=== PATIENT | female | born 1955 | race Caucasian/White ===

== ENCOUNTER 2019-02-04 06:45 | Day surgery (SDC) | payer BC ==
[2019-02-01 12:35] LABS: Hematocrit 39.2 % (36.0-45.0); MPV 8.9 fL (7.6-11.3); RBC Red Blood Cell Count 4.48 M/uL (3.86-4.86)
--- NOTE | 2019-02-01 12:37 | EKG ---
Test Date: 2019-02-01 Test Time: 12:00:21 Personal Fitness Trainer: SILVANA MEASUREMENT RESULTS: Intervals: Rate: 49 IL: 140 QRSD: 78 QT: 410 QTc: 370 [place]: P: 20 [place]: 140 QRS: 44 T: 56 INTERPRETIVE STATEMENTS: Marked sinus bradycardia Abnormal ECG Compared to ECG 10/15/1999 09:23:00 Sinus rhythm no longer present Ventricular premature complex(es) no longer present Electronically Signed On 02-01-19 12:36:18 CDT by Naeem Thomas
[2019-02-01 13:18] LABS: Protein, Total 6.8 g/dL (6.4-8.2)
[2019-02-04] MEDS ORDERED: WATER IV ONE ×2 (07:00→07:15)
[2019-02-04] MEDS ORDERED: DEXTROSE 5% IV ONE ×2 (07:00→07:15)
[2019-02-04] MEDS ORDERED: METHYLENE BLUE 0.5% IV ONE ×2 (07:00→07:15)
[2019-02-04] MEDS ORDERED: Ringers Lactate 1,000 ML IV ONE (07:09)
[2019-02-04] MEDS ORDERED: LIDOCAINE 1% W/EPI 1:100,000 MDV 20 ML VIAL ONE (08:08)
[2019-02-04] MEDS ORDERED: FENTANYL CITR 250 MCG/5 ML ONE (08:10)
[2019-02-04] MEDS ORDERED: PROPOFOL 200 MG/20 ML VIAL IV ONE (08:10)
[2019-02-04] MEDS ORDERED: LIDOCAINE 2% MPF 5 ML VIAL ONE (08:10)
[2019-02-04] MEDS ORDERED: ROCURONIUM 50 MG/5 ML VIAL IV ONE (08:10)
[2019-02-04] MEDS ORDERED: dexAMETHasone 10 MG/ML VIAL ONE (08:10)
[2019-02-04] MEDS ORDERED: MIDAZOLAM HCL 2 MG/2 ML INJ ONE (08:10)
[2019-02-04] MEDS ORDERED: EPHEDRINE SULF 50 MG/ML VIAL ONE (08:45)
--- NOTE | 2019-02-04 10:36 | P.BOP ---
Preoperative diagnosis: hyperparathyroidism, parathyroid adenoma Postoperative diagnosis: same Primary procedure: parathyroidectomy [employer]: GINNY MILLER Estimated blood loss: 10 ml Specimen: right inferior and superior Findings: small inf parathyroid, large sup parathyroid located in TE groove Anesthesia: General Complications: None Fluids & blood products: 850ml crystalloid, 400 methylene blue solution Transferred to: Recovery Room Condition: Good
[2019-02-04] MEDS ORDERED: ONDANSETRON 4 MG/2 ML VIAL ONE (11:29)
[2019-02-04 14:53] VITALS: BP 136/75; TEMP 96.9; O2SAT 92
--- NOTE | 2019-02-04 22:25 | OP ---
Date of Procedure: 02/04/2019 Surgeon: Jessica Elam MD Preoperative Diagnoses: Right parathyroid adenoma, hypercalcemia, hyperparathyroidism, osteoporosis. Postoperative Diagnoses: Right parathyroid adenoma, hypercalcemia, hyperparathyroidism, osteoporosis. Procedure: 1. Exploration and excision of right parathyroid adenoma and right parathyroids. Specimens: 1. Right inferior parathyroid. 2. Right superior parathyroid. Indication For Procedure: Ms. Carvalho presented with the above noted diagnoses. Based on accepted surgical criteria, a parathyroidectomy was recommended. The risks, benefits, and alternatives were discussed with the patient who agreed to proceed. Description Of Procedure: The patient was brought to the operating room. She was placed under general anesthesia via oral endotracheal tube. A shoulder roll was placed. The head was extended. A surgeon performed ultrasound, was done with attempt to locate the parathyroid adenoma. There was a hypodense lesion adjacent to the carotid in the inferior aspect which was suspicious for parathyroid adenoma and the ultrasound was concluded. The patient's neck was then prepped and draped in standard sterile fashion. A marking pen was used to sal[place] the patient's sternal notch and thyroid cartilage notch. A 2 cm incision was made in an existing skin crease. The skin and subcutaneous tissues were divided. The platysma was retracted. The anterior border of the sternocleidomastoid muscle was identified. The strap muscles were identified. The strap muscles were retracted medially and the inferior pole of the thyroid was noted. Dissection around the inferior aspect of the thyroid revealed approximately 1 cm parathyroid gland which was appropriately discolored due to administration of dilute intravenous methylene blue perioperatively. The specimen was carefully dissected and removed. However, on further inspection, it appeared to be slightly larger than normal parathyroid gland but smaller than typical for an adenoma. While awaiting time for interval for parathyroid hormone washout, the dissection and investigation was continued. There were no additional parathyroid glands noted within the immediate area and decision was made to look for the superior parathyroid. The skin incision was extended approximately 1 cm in order to provide better retraction in view of the right thyroid gland. After extension of the incision, the soft tissues were retracted and the thyroid gland superior pole was dissected and mobilized by division of soft tissue attachments and vasculature attachments. The right thyroid lobe was then retracted medially and careful inspection and dissection was made. No parathyroid gland was noted within the fatty tissue surrounding the superior pole of the thyroid. The recurrent laryngeal nerve was identified and carefully protected. Palpation within the tracheoesophageal groove revealed some concern for nodularity. The carotid artery was then carefully retracted laterally and Lopez dissector was used to dissect within the paratracheal region and tracheoesophageal groove. After careful dissection of the fat, there was some notable tissue suspicious for a methylene blue-stained parathyroid. The vascular and soft tissue attachments that were overlying the recurrent laryngeal nerves were then divided in order to allow better dissection in this area. The parathyroid adenoma was then bluntly dissected and small vascular attachments were divided using the ligature. After removal, the surgical bed was carefully inspected. The recurrent laryngeal nerve appeared to be physically intact. There was no significant bleeding or oozing. The right thyroid was replaced into its anatomic position. No drain was felt to be necessary. The wound was closed in a layered fashion using 4-0 Vicryl sutures and 5-0 Monocryl subcuticular suture. Due to patient's adhesive allergy , no Mastisol or Steri-Strips were applied and the incision was left uncovered. The patient was then returned to care of Anesthesia for awakening and extubation in the operating room, which proceeded without difficulty. Complications: None. Labs: Pre-opeartive PTH 156 Intra-operative PTH (after removal of inferior parathyroid): 140 Post-operative PTH (after removal of superior parathyroid): 14 Disposition: The patient will be discharged home later today and follow up with Dr. Elam in about 10 days for evaluation of wound healing. JARAD/CHRISTIANE Voice ID: [id number] Report ID: [id number] ALEXEI
--- OUTSIDE RECORDS SUMMARY | 2019-02-13 19:08 | XMS REPORT ---
:1955 [facility] Address [address] [place] [address] Dr. Cortez [address] [place] [id number] Care Team Providers Name Role Phone Unavailable Unavailable Unavailable Problems This patient has no known problems. Allergies, Adverse Reactions, Alerts This patient has no known allergies or adverse reactions. Medications This patient has no known medications.
== END 2019-02-04 13:20 | disposition home or self-care (01) ==
LOC: OR 06:45
PROVIDERS: ATTEND Otolaryngology
PROC: 0GBL0ZZ Excision of Right Superior Parathyroid Gland, Open Approach (ICD-10-PCS; 2019-02-04)
PROC: 0GBN0ZZ Excision of Right Inferior Parathyroid Gland, Open Approach (ICD-10-PCS; principal; 2019-02-04 08:15)
DX: D35.1 Benign neoplasm of parathyroid gland (principal); E21.0 Primary hyperparathyroidism; E83.52 Hypercalcemia; M81.8 Other osteoporosis without current pathological fracture; Z88.0 Allergy status to penicillin; Z88.2 Allergy status to sulfonamides; Z88.6 Allergy status to analgesic agent; Z91.040 Latex allergy status; Z80.9 Family history of malignant neoplasm, unspecified; Z83.3 Family history of diabetes mellitus; Z82.49 Family history of ischemic heart disease and other diseases of the circulatory system
CPT/HCPCS: 93005; 85025; 36415 ×2; 82310; 84155; 88305; 83970 ×3; 60500; J2704; J2250; J3010; J1100; J7060; J7120; J2405

== ENCOUNTER 2022-08-17 19:49 | Emergency (ER) | payer BC ==
--- OUTSIDE RECORDS SUMMARY | 2022-08-17 19:53 | XMS REPORT | Continuity of Care Document ---
:1955 Author Organization [facility] t Address [address] [facility] [address] [place] [address] Care Team Providers Name Role Phone Pcp, Patient Does Not Have A Primary Care Physician [id number] Geo Jiménez Attending Clinician GEO SOLIZ Attending Clinician Unavailable Doctor Unassigned, [place] Attending Clinician Unavailable Michelet Jane MD Attending Clinician MICHELET JANE Attending Clinician Unavailable Payers Payer Name Policy Type Policy Number Effective Date Expiration Date S ource Problems Condition Condition Condition Status Onset Resolution Last Treating Co mments Source Name Details Category Date Date Treatment Clinician Date No known No known Disease Unive rs active active ity of problems problems [place] [facility] Allergies, Adverse Reactions, Alerts Allergy Allergy Status Severity Reaction(s) Onset Inactive Treating Comm ents Source Name Type Date Date Clinician Sulfa Propensi Active Other - See Patient Un mauricio (Sulfona ty to comments 1-15 states it ity of mide adverse 00:00: makes her [place] Antibiot reaction 00 really Medica l ics) s sick Branch SULFA Drug Active High Other-Cmnt 0 Univer s (SULFONA Class 1-15 ity of MIDE 00:00: [place] ANTIBIOT 00 Medical ICS) Branch Social History Social Habit Start Date Stop Date Quantity Comments Source Alcohol intake 2022-06-05 2022-06-05 Current University of 00:00:00 00:00:00 non-drinker of [facility] alcohol (finding) Branch Exposure to 2022-05-24 2022-06-03 Not sure [facility]-CoV-2 00:00:00 05:48:00 [place] [facility] (event) [place] Tobacco use and 2021-11-08 2021-11-08 Smokeless tobacco Un iversity of exposure 00:00:00 00:00:00 non-user [facility] Sex Ass[birth year] At [birth year] Universit y of 00:00:00 00:00:00 [facility] Smoking Status Start Date Stop Date Source Never smoked tobacco [facility] Medications Ordered Filled Start Stop Current Ordering Indication Dosage Frequency Signature Comments Components Source Medication Medication Date Date Medication? Clinician (SIG) Name Name DICLOFENAC Yes [id number] TAKE 1 Univers 75 mg EC 4-11 [id number] TABLET BY ity o f tablet 00:00: MOUTH IN [place] 00 THE Medical MORNING Branch AND IN THE EVENING WITH MEALS triamcinolo 2022- No [id number] 40mg [facility] 06-05 71343 ity of acetonide 16:45: 15:32 [place] (KENALOG) 00 :00 Medical injection Branch 40 mg triamcinolo 2022- No [id number] 40mg 40 mg, [facility] 06-05 27777 Intramuscu ity of acetonide 16:45: 15:32 [place]CE[place] 00 :00 1 dose, On [facility] injection [facility] 06/05/22 Bran ch 40 mg at 1045, Routine triamcinolo 2022- No [id number] 40mg [facility] 06-05 71644 ity of acetonide 16:45: 15:32 [place] (KENALOG) 00 :00 Medical injection Branch 40 mg triamcinolo 2022- No [id number] 40mg 40 mg, [facility] 06-05 56488 Intramuscu ity of acetonide 16:45: 15:32 lar, ONCE, [place] (KE[place]LOG) 00 :00 1 dose, On [facility] injection [facility] 06/05/22 Bran ch 40 mg at 1045, Routine diclofenac 2022- Yes [id number] 75mg Take 1 Univers 75 mg EC 06-05 [id number] tablet by ity of tablet 00:00: 04:59 mouth in [place] 00 :00 the Medical morning Branch and 1 tablet in the evening. Take with meals. Do all this for 30 days. diclofenac 2022- Yes [id number] 75mg Take 1 Univers 75 mg EC 06-05 [id number] tablet by ity of tablet 00:00: 04:59 mouth in [place] 00 :00 the Medical morning Branch and 1 tablet in the evening. Take with meals. Do all this for 30 days. DICLOFENAC 2021-04- No [id number] 75mg Take 1 Univers 75 mg EC 002-08 [id number] tablet by ity of tablet 00:00: 04:59 mouth in [place] 00 :00 the Medical morning Branch and 1 tablet in the evening. Take with meals. Do all this for 30 days. DICLOFENAC 2021- No [id number] 75mg Take 1 Univers 75 mg EC 12-10 [id number] tablet by ity of tablet 00:00: 04:59 mouth in [place] 00 :00 the Medical morning Branch and 1 tablet in the evening. Take with meals. Do all this for 30 days. DICLOFENAC 2021- No [id number] 75mg Take 1 Univers 75 mg EC 12-10 [id number] tablet by ity of tablet 00:00: 00:00 mouth in [place] 00 :00 the Medical morning [place] and 1 tablet in the evening. Take with meals. Do all this for 30 days. triamcinolo 2021- No [id number] 40mg Univers ne 12-03 ity of acetonide 19:00: 17:57 [place] (KENALOG) 00 :00 Medical injection Branch 40 mg triamcinolo 2021- No [id number] 40mg 40 mg, [facility] ne 12-03 Intra-alvaro ity of acetonide 19:00: 17:57 [place], [place] (KENALOG) 00 :00 ONCE, 1 Medical injection dose, On Branch 40 mg 12/03/21 at 1400, Routine aspirin/caf 2021- No Take by Rodrigo clayton 11-08 mouth. ity of (ANACIN 09:25: 00:00 [place] ORAL) 12 :00 Medical Branch IBUPROFEN 2021- No Take by [facility] ers ORAL 11-08 mouth. ity of 09:25: 00:00 [place] 12 :00 Medical Branch naproxen 2021- [facility] mouth. ity of (ALEVE 09:25: 00:00 [place] ORAL) 12 :00 Medical Branch ibuprofen 2021- No Take by [facility] ers (ADVIL 11-08 mouth. ity of ORAL) 09:25: 00:00 [place] 12 :00 Medical Branch aspirin/mustapha 2021- No Take by mauricio taminophen/ 11-08 mouth. ity o f caffeine 09:25: 00:00 [place] (EXCEDRIN 12 :00 Medical MIGRAINE Branch ORAL) diclofenac 2021- No [id number] 75mg Take 1 Univers 75 mg EC 11-08 [id number] tablet by ity of tablet 00:00: 00:00 mouth in [place] 00 :00 the Medical morning Branch and 1 tablet in the evening. Take with meals. Do all this for 30 days. diclofenac 2021- No [id number] 75mg Take 1 Univers 75 mg EC 11-08 [id number] tablet by ity of tablet 00:00: 04:59 mouth in [place] 00 :00 the Medical morning Branch and 1 tablet in the evening. Take with meals. Do all this for 30 days. acetaminoph Yes Take by Uni vers en (TYLENOL 7-28 mouth. ity of ARTHRITIS 13:10: [place] ORAL) 15 Medical Branch acetaminoph Yes Take by Uni vers en (TYLENOL 7-28 mouth. ity of ARTHRITIS 13:10: [place] ORAL) 15 Medical Branch acetaminoph Yes Take by Uni vers en (TYLENOL 7-28 mouth. ity of ARTHRITIS 13:10: [place] ORAL) 15 Medical Branch acetaminoph Yes Take by Uni vers en (TYLENOL 7-28 mouth. ity of ARTHRITIS 13:10: [place] ORAL) 15 Medical Branch acetaminoph Yes Take by Uni vers en (TYLENOL 7-28 mouth. ity of ARTHRITIS 13:10: [place] ORAL) 15 Medical Branch acetaminoph Yes Take by Uni vers en (TYLENOL 7-28 mouth. ity of ARTHRITIS 13:10: [place] ORAL) 15 Medical Branch acetaminoph Yes Take by Uni vers en (TYLENOL 7-28 mouth. ity of ARTHRITIS 13:10: [place] ORAL) 15 Medical Branch GARLIC ORAL Yes Take by Uni vers 7-28 mouth. ity of 13:10: [place] [address] Medical Branch GARLIC ORAL Yes Take by Uni vers 7-28 mouth. ity of 13:10: [place] 14 Medical Branch GARLIC ORAL Yes Take by Uni vers 7-28 mouth. ity of 13:10: [address] Branch GARLIC ORAL Yes Take by Uni vers 7-28 mouth. ity of 13:10: [address] Branch GARLIC ORAL Yes Take by Uni vers 7-28 mouth. ity of 13:10: [address] Branch GARLIC ORAL Yes Take by Uni vers 7-28 mouth. ity of 13:10: [address] Branch GARLIC ORAL Yes Take by Uni vers 7-28 mouth. ity of 13:10: [address] Branch ergocalcife Yes [id number] Take 1 Univers rol, 1-15 capsule by ity of vitamin d2, 00:00: mouth [place] 50,000 unit 00 weekly. Medic al capsule Branch ergocalcife Yes [id number] Take 1 Univers rol, 1-15 capsule by ity of vitamin d2, 00:00: mouth [place] 50,000 unit 00 weekly. Medic al capsule Branch ergocalcife Yes [id number] Take 1 Univers rol, 1-15 capsule by ity of vitamin d2, 00:00: mouth [place] 50,000 unit 00 weekly. Medic al capsule Branch ergocalcife Yes [id number] Take 1 Univers rol, 1-15 capsule by ity of vitamin d2, 00:00: mouth [place] 50,000 unit 00 weekly. Medic al capsule Branch ergocalcife Yes [id number] Take 1 Univers rol, 1-15 capsule by ity of vitamin d2, 00:00: mouth [place] 50,000 unit 00 weekly. Medic al capsule Branch ergocalcife 2019-0 Yes [id number] Take 1 Univers rol, 1-15 capsule by ity of vitamin d2, 00:00: mouth [place] 50,000 unit 00 weekly. Medic al capsule Branch ergocalcife 2019-0 Yes [id number] Take 1 Univers rol, 1-15 capsule by ity of vitamin d2, 00:00: mouth [place] 50,000 unit 00 weekly. Medic al capsule Branch PROAIR HFA 2017-04 Yes USE 2 Univer s 90 2-11 PUFFS ity of mcg/actuati 00:00: EVERY 4 Tj as on inhaler 00 HOURS Medic al NEEDED AND Branch 2-3 PUFFS 15-20 MINUTES PRIOR TO EXERCISE QVAR 2017-04 Yes INHALE 2 Univers REDIHALER 2-11 PUFF BY ity of 80 00:00: INHALATION [place] mcg/actuati 00 ROUTE Medical on inhaler EVERY DAY Bran ch PROAIR HFA 2017-04 Yes USE 2 Univer s 90 2-11 PUFFS ity of mcg/actuati 00:00: EVERY 4 Tj as on inhaler 00 HOURS Medic al NEEDED AND Branch 2-3 PUFFS 15-20 MINUTES PRIOR TO EXERCISE QVAR 2017-04 Yes INHALE 2 Univers REDIHALER 2-11 PUFF BY ity of 80 00:00: INHALATION [place] mcg/actuati 00 ROUTE Medical on inhaler EVERY DAY Bran ch PROAIR HFA 2017-04 Yes USE 2 Univer s 90 2-11 PUFFS ity of mcg/actuati 00:00: EVERY 4 Tj as on inhaler 00 HOURS Medic al NEEDED AND Branch 2-3 PUFFS 15-20 MINUTES PRIOR TO EXERCISE QVAR 2017-04 Yes INHALE 2 Univers REDIHALER 2-11 PUFF BY ity of 80 00:00: INHALATION [place] mcg/actuati 00 ROUTE Medical on inhaler EVERY DAY Bran ch PROAIR HFA 2017-04 Yes USE 2 Univer s 90 2-11 PUFFS ity of mcg/actuati 00:00: EVERY 4 Tj as on inhaler 00 HOURS Medic al NEEDED AND Branch 2-3 PUFFS 15-20 MINUTES PRIOR TO EXERCISE QVAR 2017-04 Yes INHALE 2 Univers REDIHALER 2-11 PUFF BY ity of 80 00:00: INHALATION [place] mcg/actuati 00 ROUTE Medical on inhaler EVERY DAY Oscar mendes PROAIR HFA 2017-04 Yes USE 2 Univer s 90 2-11 PUFFS ity of mcg/actuati 00:00: EVERY 4 Tj as on inhaler 00 HOURS Medic al NEEDED AND Branch 2-3 PUFFS 15-20 MINUTES PRIOR TO EXERCISE QVAR 2017-04 Yes INHALE 2 Univers REDIHALER 2-11 PUFF BY ity of 80 00:00: INHALATION [place] mcg/actuati 00 ROUTE Medical on inhaler EVERY DAY Oscar mendes PROAIR HFA 2017-04 Yes USE 2 Univer s 90 2-11 PUFFS ity of mcg/actuati 00:00: EVERY 4 Tj as on inhaler 00 HOURS Medic al NEEDED AND Branch 2-3 PUFFS 15-20 MINUTES PRIOR TO EXERCISE QVAR 2017-04 Yes INHALE 2 Univers REDIHALER 2-11 PUFF BY ity of 80 00:00: INHALATION [place] mcg/actuati 00 ROUTE Medical on inhaler EVERY DAY Oscar mendes PROAIR HFA 2017-04 Yes USE 2 Univer s 90 2-11 PUFFS ity of mcg/actuati 00:00: EVERY 4 Tj as on inhaler 00 HOURS Medic al NEEDED AND Branch 2-3 PUFFS 15-20 MINUTES PRIOR TO EXERCISE QVAR 2017-04 Yes INHALE 2 Univers REDIHALER 2-11 PUFF BY ity of 80 00:00: INHALATION [place] mcg/actuati 00 ROUTE Medical on inhaler EVERY DAY [facility] lovastatin 2017-04 Yes Univers 20 mg 2-05 ity of tablet 00:00: [place] [facility] lisinopril 2017-04 Yes Univers 20 mg 2-05 ity of tablet 00:00: [place] [facility] furosemide 2017-04 Yes Univers 20 mg 2-05 ity of tablet 00:00: [place] [facility] lovastatin 2017-04 Yes Univers 20 mg 2-05 ity of tablet 00:00: [facility] lisinopril 2017-04 Yes Univers 20 mg 2-05 ity of tablet 00:00: [facility] furosemide 2017-04 Yes Univers 20 mg 2-05 ity of tablet 00:00: [place] [facility] lovastatin 2017-04 Yes Univers 20 mg 2-05 ity of tablet 00:00: [facility] lisinopril 2018-1 Yes Univers 20 mg 2-05 ity of tablet 00:00: [address] furosemide 2017- Yes Univers 20 mg 2-05 ity of tablet 00:00: [address] lovastatin 2017-04 Yes Univers 20 mg 2-05 ity of tablet 00:00: [address] lisinopril 2017-04 Yes Univers 20 mg 2-05 ity of tablet 00:00: [address] furosemide 2017-04 Yes Univers 20 mg 2-05 ity of tablet 00:00: [address] lovastatin 2017-04 Yes Univers 20 mg 2-05 ity of tablet 00:00: [address] lisinopril 2017-04 Yes Univers 20 mg 2-05 ity of tablet 00:00: [address] furosemide 2017-04 Yes Univers 20 mg 2-05 ity of tablet 00:00: [address] lovastatin 2017-04 Yes Univers 20 mg 2-05 ity of tablet 00:00: [address] lisinopril 2017-04 Yes Univers 20 mg 2-05 ity of tablet 00:00: [address] furosemide 2017-04 Yes Univers 20 mg 2-05 ity of tablet 00:00: [address] lovastatin 2017-04 Yes Univers 20 mg 2-05 ity of tablet 00:00: [address] lisinopril 2017-04 Yes Univers 20 mg 2-05 ity of tablet 00:00: [address] furosemide 2017-04 Yes Univers 20 mg 2-05 ity of tablet 00:00: [address] Vital Signs Vital Name Observation Time Observation Value Comments Source Body height 2022-06-05 15:31:00 149.9 cm [facility] Body weight 2022-06-05 15:31:00 77.111 kg [facility] BMI 2022-06-05 15:31:00 34.34 kg/m2 [facility] Systolic blood 2021-11-08 13:42:00 126 mm[Hg] Univer sity of [facility] [place] [facility] Diastolic blood 2021-11-08 13:42:00 82 mm[Hg] Unive rsity of [facility] [place] [facility] Heart rate 2021-11-08 13:42:00 81 /min [facility] Body height 2021-11-08 13:42:00 149.9 cm [facility] Body weight 2021-11-08 13:42:00 77.111 kg [facility] BMI 2021-11-08 13:42:00 34.34 kg/m2 [facility] Procedures Procedure Date / Time Performed Performing Clinician Shanon salas [facility] PATIENT 2022-06-05 15:27:30 Doctor Unassigned, No [facility] [place] FINANCIAL POLICY Name [facility] Encounters Start End Encounter Admission Attending Care Care Encounter Source Date/Time Date/Time Type Type Clinicians Facility Department ID 2022-07-15 2022-07-15 [facility] 1.2.840.114 [id number] Univers 00:00:00 00:00:00 [facility] [id number] it y [facility] 4.2.7.2.686 Tj as FARSHAD?BLEA [phone] Ma tangela CARN[address] MEDICAL OFFICE [facility] 2022-06-05 2022-06-05 Office [facility] 1.2.840.114 [id number] Univers 09:45:00 10:00:00 Visit [facility] [id number] it y [facility] 4.2.7.2.686 Tj as FARSHAD?BLEA [phone] Ma dicbala [address] MEDICAL OFFICE [facility] 2022-06-05 2022-06-05 Outpatient [facility] [id number] Univers 09:45:00 09:45:00 EGO ity [facility] 2022-06-05 2022-06-05 Orders Doctor HUMPHRIES 1.2.840.114 [id number] Univers 00:00:00 00:00:00 Only Unassigned, DAYA [id number] ity of [place] [facility] 4.2.7.2.686 Tj as [phone] [address] 2022-01-08 2022-01-08 [facility] 1.2.840.114 [id number] Univers 00:00:00 00:00:00 [facility] [id number] it y of [place] 4.2.7.2.686 Tj as FARSHAD?BLEA [phone] Ma tangela NEFF [address] [facility] OFFICE [facility] 2021-12-07 2021-12-07 Refill [facility] 1.2.840.114 [id number] Univers 00:00:00 00:00:00 Geo S HEALTH [id number] it y of [place] 4.2.7.2.686 Tj as FARSHAD?BLEA [id number] Ma tangela NEFF [address] [facility] OFFICE [facility] 2021-11-08 2021-11-08 Office [facility] 1.2.840.114 [id number] Univers 08:45:00 09:41:10 Visit Geo Munguia HEALTH 350.1.13.10 it y [facility] 4.2.7.2.686 Tj as FARSHAD?BLEA [id number] Ma tangela NEFF 198 [facility] 2021-11-08 2021-11-08 Outpatient [facility]ector [facility] [id number] Univers 08:45:00 09:41:10 GEO ity [facility] 2021-11-08 2021-11-08 Outpatient [facility] [id number] Univers 08:45:00 08:45:00 GEO ity [facility] 2021-11-08 2021-11-08 Orders Doctor HUMPHRIES 1.2.840.114 [id number] Univers 00:00:00 00:00:00 Only Unassigned, DAYA 350.1.13.10 ity of [place] [facility] 4.2.7.2.686 Tj as [phone] [address] 2021-09-10 2021-09-10 Orders Doctor YANDEL Pérez.2.840.114 [id number] Univers 00:00:00 00:00:00 Only Unassigned, DAYA 350.1.13.10 ity of [place] [facility] 4.2.7.2.686 Tj as [id number] [address] 2021-07-22 2021-07-22 Orders Doctor YANDEL Pérez.2.840.114 [id number] Univers 00:00:00 00:00:00 Only Unassigned, DAYA 350.1.13.10 ity of [place] [facility] 4.2.7.2.686 Tj as [phone] [address] 2021-07-18 2021-07-18 Telephone [facility] 1.2.840.114 [id number] Univers 00:00:00 00:00:00 Michelet Domingo HEALTH 350.1.13.10 it y of [place] 4.2.7.2.686 Tj as FARSHAD?BLEA [id number] Ma tangela NEFF [address] [facility] OFFICE [facility] 2021-06-21 2021-06-21 Orders Doctor YADNEL 1.2.840.114 [id number] Univers 00:00:00 00:00:00 Only Unassigned, DAYA 350.1.13.10 ity of [place] [facility] 4.2.7.2.686 Tj as [phone] [address] 2021-06-12 2021-06-12 Outpatient R MART[facility]NEZ [facility] [id number] [facility] 14:15:00 15:22:51 GEO ity of [place] [facility] 2021-06-12 2021-06-12 Office [facility] 1.2.840.114 [id number] Univers 14:15:00 15:22:51 Visit [facility] 350.1.13.10 it y of [place] 4.2.7.2.686 Tj as FARSHAD?BLEA [phone] Ma tangela NEFF [address] [place] [address] OFFICE [facility] 2021-06-10 2021-06-10 Telephone [facility] 1.2.840.114 [id number] Univers 00:00:00 00:00:00 [facility] HEALTH 350.1.13.10 it y of [place] 4.2.7.2.686 Tj as FARSHAD?BLEA [id number] Ma tangela NEFF [address] [place] [address] OFFICE [facility] 2021-01-11 2021-01-11 Office Luc[facility] [id number] Univers 09:07:10 10:16:53 Visit Michelet Health 350.1.13.10 it y of [place] 4.2.7.2.686 Tj as Farshad?Blea [id number] Ma tangela neff [address] [place] [address] Office [facility] 2021-01-11 2021-01-11 Outpatient [facility] [id number] Univers 09:15:00 09:15:00 MICHELET gonzales [facility] 2020-11-02 2020-11-02 Telephone [facility] 1.2.840.114 [id number] Univers 00:00:00 00:00:00 Michelet Myers 350.1.13.10 i ty of [place]2.[place].2.[place] Profess[place] [phone] Ma dical nal 198 [address] [facility] 2020-10-31 2020-10-31 Hospital [facility] 1.2.840.114 [id number] Univers 13:15:07 23:59:00 Encounter Michelet De Souza 350.1.13.10 ity of Surgical 4.2.7.2.686 Tj as Specialti [phone] Ma dical es [address] [facility] 2020-10-31 2020-10-31 Office [facility] 1.2.031.136 [id number] Univers 12:31:30 13:53:23 Visit Michelet De Souza 350.1.13.10 it y of Surgical 4.2.7.2.686 Tj as Specialti [phone] Ma dical es 198 [facility] 2020-10-31 2020-10-31 Outpatient [facility] [id number] Univers 13:15:00 13:15:00 MICHELET gonzales [facility] 2020-10-18 2020-10-18 Telephone [facility] 1.2.840.114 [id number] Univers 00:00:00 00:00:00 Michelet Myers 350.1.13.10 i ty [place] 4[place]2.7.2.[place] [phone] Ma dical nal 198 [facility] Results This patient has no known results.
--- NOTE | 2022-08-17 20:48 | EDPHYS ---
Physician Documentation [facility] Name: Ana Carvalho Age: 66 yrs Sex: Female : 1955 Arrival Date: 08/17/2022 Time: 19:49 Bed 9 Private MD: ED Physician Jose Maria Morgan HPI: 08/17 20:08 This 66 yrs old Female presents to ER via Ambulatory with complaints of sp4 Foreign Body In Ear. 20:40 66-year-old female presents with acute foreign body in the right ear, presumably a sp4 cockroach, or insect that is still moving and alive. This is happened just prior to arrival. . Historical: - Allergies: 20:07 Sulfa (Sulfonamide Antibiotics); lg3 20:07 PENICILLINS; lg3 20:07 metformin; lg3 - PMHx: 20:07 Diabetes mellitus; HTN; high cholesterol; Asthma; lg3 - PSHx: 20:07 Appendectomy; parathyroid; lg3 - Immunization history:: Adult Immunizations up to date, Client reports having NOT received the Covid vaccine. - Social history:: Smoking status: Patient denies any tobacco usage or history of. Patient uses alcohol, occasionally. - Family history:: not pertinent. ROS: 20:43 Constitutional: Negative for fever, chills, and weight loss, Eyes: Negative for injury, sp4 pain, redness, and discharge, ENT: Negative for injury, pain, and discharge, positive for right ear foreign body possibly cockroach. Neck: Negative for injury, pain, and swelling, Cardiovascular: Negative for chest pain, palpitations, and edema, Respiratory: Negative for shortness of breath, cough, wheezing, and pleuritic chest pain, Abdomen/GI: Negative for abdominal pain, nausea, vomiting, diarrhea, and constipation. 20:43 All other systems are negative. Exam: 20:43 Constitutional: This is a well developed, well nourished patient who is awake, alert, sp4 and in no acute distress. Head/Face: Normocephalic, atraumatic. Eyes: Pupils equal round and reactive to light, extra-ocular motions intact. Lids and lashes normal. Conjunctiva and sclera are not injected. Cornea within normal limits. Periorbital areas with no swelling, redness, or edema. ENT: Nares patent. No nasal discharge, no septal abnormalities noted. Left ear exam normal, right ear canal contains moving cockroach deep inside the ear canal. Neck: Trachea midline, no thyromegaly or masses palpated, and no cervical lymphadenopathy. Supple, full range of motion without nuchal rigidity, or vertebral point tenderness. No Meningismus. Chest/axilla: Normal chest wall appearance and motion. Nontender with no deformity. No lesions are appreciated. Cardiovascular: Regular rate and rhythm with a normal S1 and S2. No gallops, murmurs, or rubs. Normal PMI, no JVD. No pulse deficits. Respiratory: Lungs have equal breath sounds bilaterally, clear to auscultation and percussion. No rales, rhonchi or wheezes noted. No increased work of breathing, no retractions or nasal flaring. Abdomen/GI: Soft, non-tender, with normal bowel sounds. No distension or tympany. No guarding or rebound. No evidence of tenderness throughout. Back: No spinal tenderness. No costovertebral tenderness. Skin: Warm, dry with normal turgor. Normal color with no rashes, no lesions, and no evidence of cellulitis. MS/ Extremity: Pulses equal, no cyanosis. Neurovascular intact. Full, normal range of motion. Neuro: Awake and alert, GCS 15, oriented to person, place, time, and situation. Cranial nerves II-XII grossly intact. Motor strength 5/5 in all extremities. Sensory grossly intact. Psych: Awake, alert, with orientation to person, place and time. Behavior, mood, and affect are within normal limits Vital Signs: 20:05 BP 181 / 98; Pulse 82; Resp 19 S; Temp 98.6(TE); Pulse Ox 99% on R/A; Weight 75.3 kg lg3 (R); Height 4 ft. 11 in. (R); 21:14 BP 155 / 78; Pulse 68; Resp 20; Pulse Ox 99% on R/A; cg 20:05 Body Mass Index 33.53 (75.30 kg, 149.86 cm) lg3 Procedures: 20:43 Foreign Body Removal: an insect, from the right ear canal, by using alligator clamps, sp4 tweezers, Dressing: none, The patient tolerated the removal well, Right ear canal cockroach was removed with alligator forceps and tweezers. Removed entirely. There is small amount of blood in the right ear canal noticed on follow-up exam. . MDM: 20:43 Patient medically screened. sp4 20:43 Differential Diagnosis Foreign body right ear canal. Data reviewed: vital signs, nurses sp4 notes. ED course: Patient reported improvement after cockroach was removed from the ear canal, patient stable for discharge home. Administered Medications: No medications were administered Disposition Summary: 08/17/22 20:47 Discharge Ordered Location: Home sp4 Problem: new sp4 Symptoms: have improved sp4 Condition: Stable sp4 Diagnosis - Foreign body in right ear sp4 - Foreign body in the right ear canal, insect sp4 Followup: sp4 - With: Private Physician - When: As needed - Reason: Discharge Instructions: - Discharge Summary Sheet sp4 - Ear Foreign Body, [id number] sp4 Forms: - Thank You Letter sp4 Signatures: Romina Muhammad RN RN lg3 Jose Maria Morgan MD MD sp4
--- NOTE | 2022-08-17 20:48 | ER ---
Nurse's Notes [facility] Name: Ana Carvalho Age: 66 yrs Sex: Female : 1955 Arrival Date: 08/17/2022 Time: 19:49 Bed 9 Private MD: Diagnosis: Foreign body in right ear;Foreign body in the right ear canal, insect Presentation: 08/17 20:05 Chief complaint: Patient states: sleeping and a bug flew in my right ear. i can feel it lg3 moving. Coronavirus screen: Client denies travel out of the [place] in the last 14 days. At this time, the client does not indicate any symptoms associated with coronavirus-19. Ebola Screen: No symptoms or risks identified at this time. Initial Sepsis Screen: Does the patient meet any 2 criteria? No. Patient's initial sepsis screen is negative. Does the patient have a suspected source of infection? No. Patient's initial sepsis screen is negative. Risk Assessment: Do you want to hurt yourself or someone else?. Onset of symptoms was August 17, 2022. 20:05 Method Of Arrival: Ambulatory lg3 20:05 Acuity: ROCÍO 4 lg3 Triage Assessment: 20:07 General: Appears in no apparent distress. uncomfortable, Behavior is calm, cooperative. lg3 Pain: Complains of pain in right ear. EENT: Ear canal w/ foreign body noted from right ear. Neuro: No deficits noted. Omalley Agitation-Sedation Scale (RASS): 0 - Alert and Calm Level of Consciousness is awake, alert, obeys commands, Oriented to person, place, time, situation. Cardiovascular: No deficits noted. Denies chest pain, shortness of breath, Capillary refill < 3 seconds Clubbing of nail beds is absent JVD is absent. Respiratory: No deficits noted. Airway is patent Trachea midline Respiratory effort is even, unlabored, Respiratory pattern is regular, symmetrical. GI: No deficits noted. No signs and/or symptoms were reported involving the gastrointestinal system. : No deficits noted. No signs and/or symptoms were reported regarding the genitourinary system. Derm: No deficits noted. No signs and/or symptoms reported regarding the dermatologic system. Skin is intact, is healthy with good turgor, Skin is dry, Skin is normal. Musculoskeletal: No deficits noted. No signs and/or symptoms reported regarding the musculoskeletal system. Circulation, motion, and sensation intact. Range of motion: intact in all extremities. Historical: - Allergies: 20:07 Sulfa (Sulfonamide Antibiotics); lg3 20:07 PENICILLINS; lg3 20:07 metformin; lg3 - PMHx: 20:07 Diabetes mellitus; HTN; high cholesterol; Asthma; lg3 - PSHx: 20:07 Appendectomy; parathyroid; lg3 - Immunization history:: Adult Immunizations up to date, Client reports having NOT received the Covid vaccine. - Social history:: Smoking status: Patient denies any tobacco usage or history of. Patient uses alcohol, occasionally. - Family history:: not pertinent. Screenin:30 [facility] ED Fall Risk Assessment (Adult) History of falling in the last 3 months, cg including since admission No falls in past 3 months (0 pts) Confusion or Disorientation No (0 pts) Intoxicated or Sedated No (0 pts) Impaired Gait No (0 pts) Mobility Assist Device Used No (0 pt) Altered Elimination No (0 pt) Score/Fall Risk Level 0 - 2 = Low Risk Oriented to surroundings, Maintained a safe environment. Abuse screen: Denies threats or abuse. Nutritional screening: No deficits noted. Tuberculosis screening: No symptoms or risk factors identified. Assessment: 20:30 General: Appears distressed, uncomfortable, Behavior is cooperative. Pain: Complains of cg pain in right ear Pain currently is 5 out of 10 on a pain scale. Neuro: No deficits noted. Cardiovascular: No deficits noted. Respiratory: No deficits noted. GI: No deficits noted. : No deficits noted. No signs and/or symptoms were reported regarding the genitourinary system. EENT: Reports pain in right ear reports bug in ear. Vital Signs: 20:05 BP 181 / 98; Pulse 82; Resp 19 S; Temp 98.6(TE); Pulse Ox 99% on R/A; Weight 75.3 kg lg3 (R); Height 4 ft. 11 in. (R); 21:14 BP 155 / 78; Pulse 68; Resp 20; Pulse Ox 99% on R/A; cg 20:05 Body Mass Index 33.53 (75.30 kg, 149.86 cm) lg3 ED Course: 19:56 Patient arrived in ED. es 20:03 Esdras Murphy PA is PHCP. cp 20:07 Triage completed. lg3 20:07 Jose Maria Morgan MD is Attending Physician. sp4 20:07 Arm band placed on right wrist. lg3 20:40 Assist provider with foreign body removal from right ear canal. using tweezers, cg Performed by Jose Maria Morgan MD Patient tolerated well. 21:14 IV discontinued, intact, bleeding controlled, No redness/swelling at site. Pressure cg dressing applied. Administered Medications: No medications were administered Medication: 21:13 VIS not applicable for this client. cg Outcome: 20:47 Discharge ordered by . sp4 21:14 Discharged to home ambulatory. cg 21:14 Discharged to home ambulatory. 21:14 Condition: improved 21:14 Discharge instructions given to patient, Instructed on discharge instructions, follow up and referral plans. Demonstrated understanding of instructions, follow-up care, medications, Prescriptions given X 21:15 Patient left the ED. cg Signatures: Nedra Doran Corey, PA PA Le Allen RN RN Romina Muhammad RN RN Jose Maria Arnold MD MD sp4
[2022-08-17 21:36] VITALS: TEMP 98.6; O2SAT 99
[2022-08-17 21:38] VITALS: BP 155/78
== END 2022-08-17 21:15 | disposition home or self-care (01) ==
LOC: ER 19:49
PROC: 09C3XZZ Extirpation of Matter from Right External Auditory Canal, External Approach (ICD-10-PCS; principal; 2022-08-17)
DX: T16.1XXA Foreign body in right ear, initial encounter (principal); Z88.0 Allergy status to penicillin; Z88.2 Allergy status to sulfonamides; Z88.8 Allergy status to other drugs, medicaments and biological substances
CPT/HCPCS: 99283